=== PATIENT | male | born 1975 | race Caucasian/White ===

== ENCOUNTER 2022-04-17 07:39 | Emergency (ER) | payer OTHER ==
[2022-04-17 07:45] VITALS: BP 146/89; PULSE 92; TEMP 99.1; BMI 35.5
[2022-04-17] MEDS ORDERED: ceFAZolin 2 GRAM PREMIX BAG IVPB ONE (09:12)
[2022-04-17] MEDS ORDERED: ACETAMINOPHEN 325 MG TABLET (FP) PO ONE (09:29)
[2022-04-17] MEDS ORDERED: LACTATED RINGERS SOLUTION 1000 ML INFUS.BAG IV ONE (09:29)
[2022-04-17] MEDS ORDERED: CLINDAMYCIN 600MG PREMIX IVPB 600 MG/50 ML BAG IVPB ONE ×2 (09:48→09:59)
[2022-04-17 09:57] LABS: BASO % 0.2 % (0-2.0); EOS % 0.4 % (0-4.5); HEMATOCRIT 43.2 % (35.4-49); HEMOGLOBIN 15.4 GM/dL (11.7-16.9); LYMPH % 18.4 % (8-40); MCH 30.7 pg (25.7-33.7); MCHC 35.6 g/dl (32.0-35.9); MEAN CELL VOLUME 86.1 fl (80-96); MEAN PLT VOLUME 7.9 fl (7.5-11.1); MONO % 8.4 % (3.8-10.2); NEUT % 72.6 % (42.8-82.8); PLATELET COUNT 242 10^3/uL (134-434); RBC 5.02 M/mm3 (4.00-5.60); RDW 12.8 % (11.9-15.9); WHITE BLOOD COUNT 10.7 K/mm3 (4.0-10.0)
[2022-04-17] MEDS ORDERED: ACETAMINOPHEN 325 MG TABLET (FP) ONE (09:59)
[2022-04-17 10:02] LABS: INR 1.09 (0.83-1.09); PROTHROMBIN TIME (PATIENT) 12.5 SEC (9.7-13.0)
[2022-04-17 10:05] LABS: ACTIVATED PTT 31.9 SECONDS (25.2-36.5)
[2022-04-17 10:12] LABS: ALBUMIN 4.1 g/dl (3.4-5.0); BLOOD UREA NITROGEN 10.9 mg/dL (7-18); CALCIUM 9.2 mg/dL (8.5-10.1)
[2022-04-17 10:15] LABS: CREATININE 0.6 mg/dL (0.55-1.3)
[2022-04-17 10:17] LABS: BILIRUBIN,TOTAL 0.8 mg/dL (0.2-1); TOT PROT 7.7 g/dl (6.4-8.2)
== END 2022-04-17 16:03 | disposition home or self-care (01) ==
LOC: JER 07:39
DX: R21 Rash and other nonspecific skin eruption (principal); L03.116 Cellulitis of left lower limb
CPT/HCPCS: 36415; 71046-TC-FY; 80053; 82550; 83605; 85025; 85610; 85651; 85730; 86140; 87040; 93005; 93010; 99284-25; C9803-CS; U0003; U0005

== ENCOUNTER 2022-07-20 13:12 | Emergency (ER) | payer OTHER ==
[2022-07-20 13:21] VITALS: BP 167/97; PULSE 90; RESP 18; TEMP 98; BMI 35.5
[2022-07-20 15:03] LABS: BASO % 0.4 % (0-2.0); EOS % 4.4 % (0-4.5); HEMATOCRIT 44.4 % (35.4-49); HEMOGLOBIN 15.2 GM/dL (11.7-16.9); LYMPH % 15.3 % (8-40); MCH 30.2 pg (25.7-33.7); MCHC 34.2 g/dl (32.0-35.9); MEAN CELL VOLUME 88.1 fl (80-96); MEAN PLT VOLUME 7.4 fl (7.5-11.1); NEUT % 73.9 % (42.8-82.8); PLATELET COUNT 380 10^3/uL (134-434); RBC 5.04 M/mm3 (4.00-5.60); RDW 12.5 % (11.9-15.9)
[2022-07-20 15:10] LABS: EPI CELLS 6 /uL (0-25.1); HYALINE CASTS 0 /uL (0-3.1); URINE APPEARANCE CLEAR; URINE BACTERIA 4 /uL (0-1359); URINE BILIRUBIN NEGATIVE (NEGATIVE); URINE COLOR YELLOW; URINE GLUCOSE (UA) NEGATIVE (NEGATIVE); URINE KETONE NEGATIVE (NEGATIVE); URINE LEUK ESTERASE TRACE (NEGATIVE); URINE NITRITE NEGATIVE (NEGATIVE); URINE PROTEIN 1+ (NEGATIVE); URINE RBC 151 /uL (0-23.9); URINE WBC 46 /uL (0-25.8)
[2022-07-20 15:12] LABS: CALCIUM 8.9 mg/dL (8.5-10.1)
[2022-07-20 15:13] LABS: ALBUMIN 3.6 g/dl (3.4-5.0)
[2022-07-20 15:15] LABS: BLOOD UREA NITROGEN 15.2 mg/dL (7-18)
[2022-07-20 15:17] LABS: BILIRUBIN,TOTAL 0.3 mg/dL (0.2-1)
[2022-07-20 15:19] LABS: CREATININE 0.8 mg/dL (0.55-1.3)
[2022-07-20 15:21] LABS: TOT PROT 7.4 g/dl (6.4-8.2)
[2022-07-20] MEDS ORDERED: CEFTRIAXONE 1 GM in DEXTROSE 5%-WATER - 100 ML IVPB ONE (16:10)
[2022-07-20] MEDS ORDERED: DOXYCYCLINE HYCLATE 100 MG CAPSULE PO ONE ×2 (16:11→16:52)
[2022-07-20] MEDS ORDERED: cefTRIAXone SODIUM 1 GM VIAL ONE (16:51)
== END 2022-07-20 17:11 | disposition home or self-care (01) ==
LOC: JER 13:12
PROC: 3E023GC Introduction of Other Therapeutic Substance into Muscle, Percutaneous Approach (ICD-10-PCS; principal; 2022-07-20)
DX: N45.3 Epididymo-orchitis (principal)
CPT/HCPCS: 36415; 76870-TC; 80053; 81003; 85025; 86780; 87086; 87491; 87591; 99284-25